=== PATIENT | female | born 1975 ===

== ENCOUNTER 2020-03-30 15:51 | Emergency (ER) | payer SELFPAY ==
[~2020-03-30] VITALS: Ht 157.5 cm; Wt 72.7 kg
[2020-03-30 16:17] VITALS: BP 112/52
[2020-03-30] MEDS ORDERED: DIPH,PERTUSS(ACELL),TET VAC/PF 0.5 ML IM-VACC ONE (16:30)
[2020-03-30] MEDS ORDERED: LIDOCAINE 1%-EPI 1:100K, 20ML SQ ONE (16:30)
--- NOTE | 2020-03-30 18:08 | NUR ---
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
--- NOTE | 2020-03-30 18:38 | NUR ---
NOT IN LOBBY AT 1800 AND 1835
== END 2020-03-30 18:41 | disposition left against medical advice (07) ==
LOC: ED 16:01
DX: L03.311 Cellulitis of abdominal wall (principal)
CPT/HCPCS: 99281